=== PATIENT | female | born 1950 | race African-American/Black ===

== ENCOUNTER 2017-06-18 10:01 | Outpatient (CLI) | payer MEDICARE, OTHER ==
[2017-06-18 10:39] LABS: Blood Urea Nitrogen 13 mg/dL (7-17)
[2017-06-18] MEDS ORDERED: NACL ONE (11:01)
--- NOTE | 2017-06-19 08:23 | Cat Scan Report ---
CT ANGIO ABD/FEMORAL ABD AORTA: HISTORY: Thoracic aortic aneurysm, AAA. TECHNIQUE: Helical CT imaging with 1.25mm reconstructions following IV contrast. Sagittal and Coronal 2D reformatted images. 3 dimensional volume rendering technique. Stenosis was measured using NASCET criteria. COMPARISON: None at this facility. FINDINGS: ABDOMINAL AORTA: There is mild ectasia of the lower thoracic aorta and abdominal aorta but no evidence for aneurysm, stenosis or dissection. Maximum diameter of the abdominal aorta measures 2 cm. The celiac axis, SMA, HORACIO, dual right renal arteries and single left renal artery are widely patent with less than 20% stenosis. ILIAC ARTERIES: The bilateral common iliac arteries, external iliac arteries, and internal iliac arteries are widely patent with less than 20% stenosis. RIGHT LOWER EXTREMITY: The superficial femoral artery, popliteal artery, anterior and posterior tibial arteries and peroneal artery are widely patent with less than 20% stenosis. LEFT LOWER EXTREMITY: The superficial femoral artery, popliteal artery, anterior and posterior tibial arteries and peroneal artery are widely patent with less than 20% stenosis. No significant atherosclerotic calcifications are identified. Impression: Essentially normal CTA abdominal aorta and bilateral lower extremity runoff.
== END 2017-06-18 10:02 | disposition home or self-care (01) ==
LOC: CT 10:01
PROVIDERS: ATTEND Internal Medicine Cardiovascular Disease
DX: I70.203 Unspecified atherosclerosis of native arteries of extremities, bilateral legs (principal); I71.2 Thoracic aortic aneurysm, without rupture
CPT/HCPCS: 36415; 75635; 82565; 84520; Q9967